=== PATIENT | female | born 1950 | race Caucasian/White ===

== ENCOUNTER → 2020-01-27 | Outpatient (CLI) | payer MEDICARE, BC ==
[~2020-01-27] MED LIST: CARB1CAP3 PO; LOSA25TA14 PO; MAPA500C PO; OMEP-218 PO; SPIR-10 PO
== END ==
LOC: M LABSMTC 12:07
PROVIDERS: ATTEND Anesthesiology
DX: Z01.812 Encounter for preprocedural laboratory examination (principal); Z20.828 Contact with and (suspected) exposure to other viral communicable diseases

== ENCOUNTER 2020-02-01 12:35 | Inpatient (IN) | payer MEDICARE ==
--- NOTE | 2020-01-31 14:37 | HPE ---
DATE OF ANTICIPATED ADMISSION: 02/01/2020 CHIEF COMPLAINT: Preoperative visit for total shoulder arthroplasty. HISTORY OF PRESENT ILLNESS: This is a 69-year-old female who is to undergo total shoulder arthroplasty on 02/01/2020. This is a preoperative visit. She has been cleared by her family physician. PHYSICAL EXAMINATION: This is a well appearing 69-year-old female. Unlabored breathing. No evidence of overlying, redness, ecchymosis, deformity or atrophy of the upper extremities. Heart rate is regular. Laboratory examination is reviewed as well as chest x-ray. This is within normal limits. ASSESSMENT AND PLAN: A 69-year-old female is optimized for surgery. She had no further questions and wished to proceed. Edited: tony 01/31/2020 1441 MTDD
[~2020-02-01] VITALS: Ht 157.5 cm; Wt 96.1 kg
[~2020-02-01 12:35] MED LIST changes: +ACETAMINOPHEN 500 MG TAB PO ONE; +LIDOCAINE 2% 100MG/5ML SDV (FOR ANES.) As Ordered ONE; +LR 1,000 ML IV ONE; +MIDAZOLAM INJ 2MG/2ML VIAL (J2250 PER 1MG) IV PRN; +ONDANSETRON 4MG/2ML VIAL As Ordered ONE; +ROCURONIUM BROMIDE 50 MG/5 ML VIAL As Ordered ONE; +ceFAZolin SOD 2 GM in IV 1 EA IV ONE; +dexameTHASONE 4 MG/ML 1ML VIAL (J1100 PER 1MG) As Ordered ONE; +fentaNYL 100 MCG/2 ML INJECTION (J3010) As Ordered ONE; +fentaNYL 100 MCG/2 ML INJECTION (J3010) IV PRN; +propofoL 200 MG/20 ML VIAL As Ordered ONE
[2020-02-01] MEDS ORDERED: dexameTHASONE 10MG/1ML VIAL PRES.FREE (J1100 PER 1MG) XX ONE (13:15)
[2020-02-01] MEDS ORDERED: LIDOCAINE 1% MDV 20ML VIAL XX ONE (13:15)
[2020-02-01] MEDS ORDERED: ROPIvacaine 0.5% 30ML INJECTION (J2795 PER 1MG) XX ONE (13:15)
[2020-02-01] MEDS ORDERED: BUPIVACAINE HCL 0.25% 10ML VIAL As Ordered ONE (13:30)
[2020-02-01] MEDS ORDERED: ceFAZolin 1GM VIAL (J0690 PER 500MG) As Ordered ONE (13:30)
[2020-02-01] MEDS ORDERED: TRANEXAMIC ACID 100 MG/ML 10ML VIAL As Ordered ONE (13:30)
[2020-02-01] MEDS ORDERED: EPINEPHrine INJ 1 MG/ML 1ML AMP As Ordered ONE (13:31)
[2020-02-01] MEDS ORDERED: BUPIVACAINE LIPOSOME/PF 1.3% 20ML VIAL (13.3MG/ML)(EXPAREL)(C9290 PER1MG) As Ordered ONE (13:31)
[2020-02-01 13:46] LABS: ALBUMIN 3.6 GM/DL (3.2-5.2); ALT/SGPT 14 U/L (12-78); BILIRUBIN,TOTAL 0.5 MG/DL (0.2-1.0); BLOOD UREA NITROGEN 14 MG/DL (7-18); CALCIUM LEVEL 9.3 MG/DL (8.8-10.2); CARBON DIOXIDE LEVEL 25 MEQ/L (21-32); CHLORIDE LEVEL 108 MEQ/L (98-107); CREATININE FOR GFR 0.73 MG/DL (0.55-1.30); GLOMERULAR FILTRATION RATE > 60.0 (>39); GLUCOSE, FASTING 89 MG/DL (70-100); POTASSIUM SERUM 3.9 MEQ/L (3.5-5.1); SODIUM LEVEL 139 MEQ/L (136-145); TOTAL PROTEIN 7.2 GM/DL (6.4-8.2)
[2020-02-01] MEDS ORDERED: ONDANSETRON 4MG/2ML VIAL IV PRN ×2 (16:45→17:00)
[2020-02-01] MEDS ORDERED: HYDROMORPHONE HCL 0.5 MG/ 0.5 ML SYRINGE (J1170 PER 1) IV PRN (16:45)
[2020-02-01] MEDS ORDERED: fentaNYL 100 MCG/2 ML INJECTION (J3010) IV PRN (16:45)
[2020-02-01] MEDS ORDERED: oxyCODONE 5MG TAB PO PRN (16:45)
[2020-02-01] MEDS ORDERED: LR 1,000 ML IV SCH ×2 (16:45)
[2020-02-01] MEDS ORDERED: PERCOCET 5MG/325MG TAB PO PRN (17:00)
[2020-02-01] MEDS ORDERED: MORPHINE 2 MG/ML 1ML VIAL (J2270) IV PRN (17:00)
[2020-02-01] MEDS ORDERED: ACETAMINOPHEN TAB 650MG DOSE (2X325MG) PO PRN (17:00)
[2020-02-01 17:15] VITALS: BP 109/55
[2020-02-01 17:45] VITALS: BP 117/90
[2020-02-01 18:45] VITALS: BP 114/88
[2020-02-01 19:45] VITALS: BP 103/53
[2020-02-01 20:45] VITALS: BP 102/47
[2020-02-01 21:45] VITALS: BP 99/55
[2020-02-01] MEDS: ceFAZolin SOD 2 GM in IV 1 EA IV SCH (22:08)
[2020-02-02 01:45] VITALS: BP 97/53
[2020-02-02 05:45] VITALS: BP 94/55
[2020-02-02] MEDS: ceFAZolin SOD 2 GM in IV 1 EA IV SCH (05:57)
[2020-02-02] MEDS ORDERED: OXYC-517 PO (06:35)
--- NOTE | 2020-02-02 09:41 | REP ---
INDICATION: LEFT SHOULDER XRAY 02/01 AM (AP ONLY) COMPARISON: None TECHNIQUE: Single neutral view of the left shoulder FINDINGS: Patient views to be status post left shoulder replacement. Overlying intra-articular and subcutaneous emphysema and soft tissue swelling noted. IMPRESSION: Status post left shoulder replacement. <Electronically signed by Jose Coon > 02/02/20 0937
--- NOTE | 2020-02-06 13:08 | DSES ---
DISCHARGE SUMMARY DATE OF ADMISSION: 02/01/2020 DATE OF DISCHARGE: 02/02/2020 ATTENDING: Abdelrahman Mcmahon M.D. CHIEF COMPLAINT: Left shoulder pain and stiffness. ADMITTING DIAGNOSES: Osteoarthritis, left shoulder and rotator cuff tear, left shoulder. DISCHARGE DIAGNOSIS: Osteoarthritis, left shoulder, status post left reverse total shoulder arthroplasty. HISTORY: This is a 69-year-old female patient with progressively worsening left shoulder pain and stiffness. She failed to improve with conservative management. She was admitted for elective total reverse left shoulder. OPERATION PERFORMED: Left reverse total shoulder arthroplasty. HOSPITAL COURSE: The patient was admitted the day of surgery and underwent a left reverse total shoulder arthroplasty which was without complication and well tolerated by the patient. She did well in the postoperative period and the day of discharge her pain was controlled. She understands nonweightbearing on her left upper extremity. She will use her sling as directed. She will follow up in our office in 10-14 days for surgical follow up. She will use her own pain medication for pain control. She will resume her preoperative medications and diet. She was given instructions that include, but are not limited to, wound monitoring, activity limitations; please refer to the medical record for further details. Abdelrahman Mcmahon M.D.
--- NOTE | 2020-02-08 15:44 | RO ---
OPERATIVE NOTE DATE OF OPERATION: 02/01/2020 SURGEON: Abdelrahman Mcmahon MD ANESTHESIOLOGIST: Dr. Muñoz ANESTHESIA: General anesthetic plus preoperative block. PRICING ANALYST: Emanuel Florian PA-C PREOPERATIVE DIAGNOSIS: Left shoulder osteoarthritis plus rotator cuff tear. POSTOPERATIVE DIAGNOSIS: Same OPERATIVE PREAMBLE: I discussed the pros, cons, risks and benefits by having left shoulder RTSA. She wished to proceed. I marked the left upper extremity. The patient had block prior to the surgery. They had no further questions. OPERATIVE REPORT: The patient was brought to the operating theater. She was administered general anesthetic. She was then placed supine on the beach chair positioner with the legs appropriately bumped up, padded, seat belt with a [place]a Hugger. A mask was used. The patient sat up at a 45 degree angle. The bed turned 45 degrees. All bony prominences were appropriately padded. The limb was prepped and draped in the usual sterile fashion with a chlorhexidine based prep solution, allowing over three minutes prep solution drying time prior to draping. A Spider arm positioner was used on the patient's left side. A preoperative timeout was performed to confirm the site, the patient and surgery. We began by making a standard deltopectoral incision. We carried this dissection down through skin and subcutaneous tissue to meticulous hemostasis. We inserted the Emerson shoulder retractor in the interval, protected the cephalic vein. I did have it tied off at the end of the case as it did have a small perforation. I then incised on the lateral aspect the conjoined tendon. A Emerson shoulder retractor was placed under this. I then identified the long head of the biceps and tenodesed this distally and removed the proximal end of the biceps under appropriate tension. I performed a subscapularis tenotomy and then placed stay sutures, #2 FiberWire in the subscapularis. I then used the starting awl and intramedullary aiming device for the proximal humerus cut guide. Through this alignment with the arm in 20 degrees left, I performed a humeral head cut. Bony osteophytes were removed as well as a capsular release from the inferomedial aspect of the humeral metaphyseal area to achieve full external rotation of the humerus. I prepared up to a size 50 mm stem. I inserted the appropriate guide and then used the reverse reamer down to appropriate depth. The metaphyseal area was very small and rather than over-ream, I accepted the natural reaming that I had so that the body of the implant sat on the proximal humerus rather than inside the humerus per se. I turned my attention to the glenoid side. I performed circumferential released of the capsule as well as the biceps superiorly around the glenoid. I developed a plane between the subscapularis and the anterior capsule. I placed retractors appropriately. I placed the center pin with the guide and then slightly anteriorly and inferiorly. This achieved good bite and bony purchase both anteriorly the length of the pin. I used a circumferential reamer and then the SR medium sized reamer for the central post. I reamed both down to bleeding bone. The peg hole was of appropriate depth and size with bone all around. I chose the SR baseplate, impacted this in place. This achieved good bite. I the inserted two screws, one inferiorly 20 mm long and the superior screw aiming for the base of the coracoid 30 mg long. These both achieved quite solid bite into the bone. I had thoroughly irrigated prior to insertion of the baseplate and I thoroughly irrigated again prior to impaction of the size 40 mm eccentric glenosphere with a connecting screw tightened into place appropriately. I then trialed with the 50 mm stem, reverse body and trialed up to a size +9 extension with a +3 mm, 40 mm reverse liner. This was appropriate and the trials were removed. The final components were impacted into place in appropriate version and liner free humerus and forearm. I used drill holes and #2 FiberWire suture around the posterior aspect of the implant. I then performed a subscapularis repair to these sutures. Again the wound was thoroughly irrigated. The subcutaneous deltopectoral interval was closed with interrupted #1 Vicryl suture, the subcutaneous tissue with 2-0 Vicryl. The skin was cleaned with wet and dry dressing. I used 20 mL of Exparel, an extra 20 mL of Marcaine and 20 mL of normal saline to instill in and around the incision site for local block. I used Prineo dressing in the standard fashion, allowing this to thoroughly dry. The patient's upper extremity was placed in a sling and the case terminated. Trialing was completed during the case, no impingement, no levering out, the patient able to achieve hand to the mouth and full forward elevation without obvious levering out or impingement. Tension on the conjoined tendon appeared normal. The patient was woken up from general anesthetic, transferred off the operating table and taken to the postanesthetic care unit in stable condition. All sponge, needle, and instrument counts were correct. Estimated blood loss: 250 mL. Plan for the patient is to be admitted if possible for one day, be discharged home according to day surgery criteria tomorrow morning. I have ordered one x-ray, AP of the left shoulder tomorrow morning and I will round with the patient to ensure no complications. Follow-up in the office in two weeks' time and then may shower over top of the Prineo wound dressing. Emanuel Florian PA-C was instrumental in achieving visualization, holding retractors and completing the case. NICHOL
== END 2020-02-02 10:20 | disposition home or self-care (01) | DRG 483 ==
LOC: M OR 12:35 → M MS5PR 17:10
PROVIDERS: ADMIT Orthopaedic Surgery Sports Medicine; ATTEND Orthopaedic Surgery Sports Medicine
PROC: 0RRK00Z Replacement of Left Shoulder Joint with Reverse Ball and Socket Synthetic Substitute, Open Approach (ICD-10-PCS; principal; 2020-02-01 12:30)
DX: M19.012 Primary osteoarthritis, left shoulder (principal)

== ENCOUNTER → 2020-05-21 | Outpatient (CLI) | payer MEDICARE ==
[~2020-05-21] MED LIST changes: -ACETAMINOPHEN 500 MG TAB PO ONE; -LIDOCAINE 2% 100MG/5ML SDV (FOR ANES.) As Ordered ONE; -LR 1,000 ML IV ONE; -MIDAZOLAM INJ 2MG/2ML VIAL (J2250 PER 1MG) IV PRN; -ONDANSETRON 4MG/2ML VIAL As Ordered ONE; +OXYC-517 PO; -ROCURONIUM BROMIDE 50 MG/5 ML VIAL As Ordered ONE; -ceFAZolin SOD 2 GM in IV 1 EA IV ONE; -dexameTHASONE 4 MG/ML 1ML VIAL (J1100 PER 1MG) As Ordered ONE; -fentaNYL 100 MCG/2 ML INJECTION (J3010) As Ordered ONE; -fentaNYL 100 MCG/2 ML INJECTION (J3010) IV PRN; -propofoL 200 MG/20 ML VIAL As Ordered ONE
--- NOTE | 2020-05-21 08:52 | REP ---
INDICATION: AFTERCARE. 02/02/2020 COMPARISON: 02/02/2020 TECHNIQUE: Internal rotation, external rotation, and axillary view of the left shoulder. FINDINGS: Shoulder prosthesis is in stable satisfactory position. Osseous structures appear intact and relatively age-appropriate. No new significant overt degenerative changes. No evidence for acute fracture or dislocation. IMPRESSION: Essentially normal left shoulder radiographs. <Electronically signed by Jose Coon > 05/21/20 0810
== END ==
LOC: M SOG 08:23
PROVIDERS: ATTEND Orthopaedic Surgery Sports Medicine
DX: Z47.1 Aftercare following joint replacement surgery (principal)

== ENCOUNTER → 2020-08-21 | Outpatient (CLI) | payer MEDICARE ==
--- NOTE | 2020-08-21 09:12 | REP ---
INDICATION: PAIN IN RIGHT SHOULDER. COMPARISON: None. TECHNIQUE: Internal rotation, external rotation, axillary and Y-view of the right shoulder. FINDINGS: Age-related osteopenia and advanced osteoarthritic degenerative changes are appreciated. Findings include cortical irregularity and bulky osteophyte at the protruding superiorly of acromioclavicular joint. There is blunting and heterogeneity to the glenoid rim along with ill-defined osteophyte formation along the inferior margin of the humeral head/neck. Subacromial space is within normal limits. No obvious loose bodies are identified. IMPRESSION: Advanced osteoarthritic degenerative changes. <Electronically signed by Jose Coon > 08/21/20 0918
== END ==
LOC: M SOG 08:50
PROVIDERS: ATTEND Orthopaedic Surgery Sports Medicine
DX: M25.511 Pain in right shoulder (principal); M19.011 Primary osteoarthritis, right shoulder

== ENCOUNTER → 2020-12-04 | Outpatient (REF) | payer MEDICARE | LOC: M LAB REF 13:02 | PROVIDERS: ATTEND Nurse Practitioner Family | DX: E83.42 Hypomagnesemia (principal) ==

== ENCOUNTER → 2023-06-11 | Outpatient (REF) | payer MEDICARE ==
[~2023-06-11] MED LIST changes: +LOSA25TA13 PO; -LOSA25TA14 PO; +OMEP-173 PO; -OMEP-218 PO
[2023-06-11 18:00] LABS: BACTERIA, URINE AUTO NEGATIVE (NEGATIVE); MUCUS, URINE SMALL (NEGATIVE); RBC, URINE AUTO 1 /HPF (0-3); SQUAMOUS EPITHELIAL CELL UR AU 1 /HPF (0-6); WBC, URINE AUTO 1 /HPF (0-3)
[2023-06-11 18:29] LABS: TOTAL PROTEIN,RANDOM URINE 59.4 MG/DL (0.0-14.0)
[2023-06-11 18:33] LABS: CREATININE,RANDOM URINE 25.5 MG/DL
== END ==
LOC: M LAB REF 16:55
PROVIDERS: ATTEND Nurse Practitioner Family
DX: R31.21 Asymptomatic microscopic hematuria (principal); N04.20 Nephrotic syndrome with diffuse membranous glomerulonephritis, unspecified

== ENCOUNTER → 2023-10-14 | Outpatient (REF) | payer MEDICARE | LOC: M LAB REF 16:55 | PROVIDERS: ATTEND Nurse Practitioner Family | DX: N39.0 Urinary tract infection, site not specified (principal) ==

== ENCOUNTER → 2023-10-27 | Outpatient (REF) | payer MEDICARE ==
[2023-10-27 18:36] LABS: APPEARANCE, URINE CLEAR (CLEAR); BACTERIA, URINE AUTO 1+ (NEGATIVE); BILIRUBIN, URINE AUTO NEGATIVE (NEGATIVE); BLOOD, URINE BLOOD 1+ (NEGATIVE); COLOR, URINE YELLOW (YELLOW); GLUCOSE, URINE (UA) AUTO NEGATIVE (NEGATIVE); KETONE, URINE AUTO NEGATIVE (NEGATIVE); LEUKOCYTE ESTERASE, URINE AUTO TRACE (NEGATIVE); MUCUS, URINE SMALL (NEGATIVE); NITRITE, URINE AUTO NEGATIVE (NEGATIVE); PROTEIN, URINE AUTO 2+ mg/dL (NEGATIVE); RBC, URINE AUTO 2 /HPF (0-3); SQUAMOUS EPITHELIAL CELL UR AU 1 /HPF (0-6); UROBILINOGEN, URINE AUTO 0.2 mg/dL (0.0-2.0); WBC, URINE AUTO 3 /HPF (0-3)
== END ==
LOC: M LAB REF 16:53
PROVIDERS: ATTEND Nurse Practitioner Family
DX: N39.0 Urinary tract infection, site not specified (principal)

== ENCOUNTER → 2024-04-26 | Outpatient (REF) | payer MEDICARE ==
[2024-04-26 18:16] LABS: TOTAL PROTEIN,RANDOM URINE 113.3 MG/DL (0.0-14.0)
[2024-04-26 18:21] LABS: CREATININE,RANDOM URINE 52.8 MG/DL
== END ==
LOC: M LAB REF 17:09
PROVIDERS: ATTEND Nurse Practitioner Family
DX: R80.9 Proteinuria, unspecified (principal)

== ENCOUNTER → 2024-05-24 | Outpatient (REF) | payer MEDICARE ==
[2024-05-24 19:11] LABS: TOTAL PROTEIN,RANDOM URINE 106.2 MG/DL (0.0-14.0)
[2024-05-24 19:16] LABS: CREATININE,RANDOM URINE 49.9 MG/DL
== END ==
LOC: M LAB REF 16:59
PROVIDERS: ATTEND Nurse Practitioner Family
DX: N04.20 Nephrotic syndrome with diffuse membranous glomerulonephritis, unspecified (principal)

== ENCOUNTER → 2024-07-27 | Outpatient (REF) | payer MEDICARE ==
[2024-07-27 18:37] LABS: CREATININE,RANDOM URINE 16.4 MG/DL
[2024-07-27 18:55] LABS: TOTAL PROTEIN,RANDOM URINE < 6.0 MG/DL (0.0-14.0)
== END ==
LOC: M LAB REF 16:49
PROVIDERS: ATTEND Nurse Practitioner Family
DX: N04.20 Nephrotic syndrome with diffuse membranous glomerulonephritis, unspecified (principal)

== ENCOUNTER → 2024-09-15 | Outpatient (REF) | payer MEDICARE ==
[2024-09-15 18:06] LABS: TOTAL PROTEIN,RANDOM URINE 68.9 MG/DL (0.0-14.0)
== END ==
LOC: M LAB REF 16:53
PROVIDERS: ATTEND Nurse Practitioner Family
DX: N04.20 Nephrotic syndrome with diffuse membranous glomerulonephritis, unspecified (principal)

== ENCOUNTER → 2024-11-22 | Outpatient (REF) | payer MEDICARE ==
[2024-11-22 18:51] LABS: TOTAL PROTEIN,RANDOM URINE 11.2 MG/DL (0.0-14.0)
== END ==
LOC: M LAB REF 17:23
PROVIDERS: ATTEND Nurse Practitioner Family
DX: N04.20 Nephrotic syndrome with diffuse membranous glomerulonephritis, unspecified (principal)

== ENCOUNTER → 2025-02-21 | Outpatient (REF) | payer MEDICARE ==
[2025-02-21 19:12] LABS: TOTAL PROTEIN,RANDOM URINE 29.8 MG/DL (0.0-14.0)
== END ==
LOC: M LAB REF 17:15
PROVIDERS: ATTEND Nurse Practitioner Family
DX: N04.20 Nephrotic syndrome with diffuse membranous glomerulonephritis, unspecified (principal)